=== PATIENT | male | born 1950 | race Caucasian/White ===

== ENCOUNTER 2018-07-24 06:55 | Day surgery (SDC) | payer MEDICARE, MEDICAID ==
[2018-07-24] VITALS (9 sets, daily range): BP systolic 91–131; BP diastolic 57–77
[2018-07-24] MEDS ORDERED: LIDOcaine 1% 30ml preserv. free vial SQ STA (07:00)
[2018-07-24] MEDS ORDERED: normal saline 1000ml 1,000 ML IV SCH (07:10)
[2018-07-24] MEDS ORDERED: albumin 25% 100mL bottle x 1 IV ONE (07:25)
[2018-07-24] MEDS ORDERED: TERA2CAP4 PO (07:46)
[2018-07-24] MEDS ORDERED: WARF1TAB PO (07:46)
[2018-07-24] MEDS ORDERED: FURO-149 PO (07:46)
[2018-07-24] MEDS ORDERED: LACT10SO6 PO (07:46)
[2018-07-24] MEDS ORDERED: SPIR25TA PO (07:46)
[2018-07-24] MEDS ORDERED: METO50TA17 PO (07:46)
[2018-07-24] MEDS ORDERED: PRED10TA23 PO (07:46)
[2018-07-24] MEDS ORDERED: MULT-955 PO (07:46)
[2018-07-24] MEDS ORDERED: OXYC-658 PO (07:46)
[2018-07-24] MEDS ORDERED: LIDO700A32 (07:46)
[2018-07-24] MEDS ORDERED: CHOL400T14 PO (07:46)
[2018-07-24] MEDS ORDERED: POTA10TA19 PO (07:46)
[2018-07-24 09:17] LABS: PROTHROMBIN TIME 21.4 SECONDS (9.0-12.0)
[2018-07-24 09:18] LABS: INR 2.2 INR
--- NOTE | 2018-07-24 09:30 | NUR ---
Sal Umana EXTRUSION LINE OPERATOR aware of critical 2.2 INR and PT 21.4, proceeding with paracentesis. Coumadin was held since 07/20/18 per patient/.
== END 2018-07-24 11:35 ==
LOC: SSTAY O 06:55
PROVIDERS: ATTEND Radiology Vascular & Interventional Radiology
DX: R18.8 Other ascites (principal); J44.9 Chronic obstructive pulmonary disease, unspecified; G47.30 Sleep apnea, unspecified; I50.9 Heart failure, unspecified; G31.84 Mild cognitive impairment of uncertain or unknown etiology; K74.60 Unspecified cirrhosis of liver; Z89.612 Acquired absence of left leg above knee; Z88.8 Allergy status to other drugs, medicaments and biological substances; Z88.1 Allergy status to other antibiotic agents; Z79.899 Other long term (current) drug therapy
CPT/HCPCS: 36415; 49083; 85610; C1729; J3490; P9047; J7030

== ENCOUNTER 2018-08-06 08:36 | Day surgery (SDC) | payer MEDICARE, MEDICAID ==
[2018-08-06] VITALS (9 sets, daily range): BP systolic 85–114; BP diastolic 50–76
[~2018-08-06] VITALS: Ht 175.3 cm; Wt 127.0 kg
[~2018-08-06 08:36] MED LIST: CHOL400T14 PO; FURO-149 PO; LACT10SO6 PO; LIDO700A32; METO50TA17 PO; MULT-955 PO; OXYC-658 PO; POTA10TA19 PO; PRED10TA23 PO; SPIR25TA PO; TERA2CAP4 PO; WARF1TAB PO
[2018-08-06] MEDS ORDERED: LIDOcaine 1% 30ml preserv. free vial SQ ONE (09:30)
[2018-08-06] MEDS ORDERED: normal saline 1000ml 1,000 ML IV PRN (10:05)
[2018-08-06] MEDS ORDERED: albumin (human) 25% 100 ML IV solution IV PRN ×2 (10:05→10:25)
[2018-08-06] MEDS ORDERED: FAMO-129 PO (11:10)
== END 2018-08-06 11:25 | disposition home or self-care (01) ==
LOC: SSTAY O 08:36
PROVIDERS: ATTEND Radiology Vascular & Interventional Radiology
DX: R18.8 Other ascites (principal); J44.9 Chronic obstructive pulmonary disease, unspecified; G47.30 Sleep apnea, unspecified; I50.9 Heart failure, unspecified; Z79.899 Other long term (current) drug therapy; Z89.612 Acquired absence of left leg above knee
CPT/HCPCS: 49083; C1729; J3490; J7030; P9047